=== PATIENT | male | born 1985 | race Caucasian/White ===

== ENCOUNTER 2020-04-13 16:45 | Emergency (ER) | payer BC, SELFPAY ==
[2020-04-13] VITALS (7 sets, daily range): BP systolic 103–152; BP diastolic 62–82; PULSE 62–74; RESP 16; TEMP 36.9–37; O2SAT 94–96; BMI 38.7
--- NOTE | 2020-04-13 16:48 | CT_ITS ---
PROCEDURE: CT ABDOMEN PELVIS W CON CLINICAL INDICATION: trauma Blunt trauma with injury and pain, contusion/abrasion or hematoma following injury COMPARISON: No exams were available for comparison TECHNIQUE: IV Contrast: 75ML Isovue 370 Oral Contrast None Axial images obtained with sagittal and coronal reformats. All CT scans at the facility use one or more dose reduction, viz: automated exposure control, ma/kV adjustment per patient size (including targeted exams where dose is matched to indication, i.e. head), or iterative reconstruction technique. FINDINGS: LOWER THORAX: Nondisplaced fractures of the left 6th and 7th ribs laterally. ABDOMEN & PELVIS: The liver, spleen, pancreas, adrenal glands, and kidneys show no acute finding. No intestinal obstruction or free air. No evidence of appendicitis or diverticulitis. No pelvic mass, abnormal fluid collection, or focal inflammatory change of the pelvis. No acute bony anomalies. There is grade 1 spondylitic spondylolisthesis of L5 on S1 with degenerative disc disease at that level. IMPRESSION: 1. Nondisplaced left 6th and 7th rib fracture. 2. Otherwise negative. No acute abdominal or pelvic findings. Dictated by: Odilon Lloyd MD 04/14/2020 06:46 Odilon Lloyd MD in [facility] 04/14/2020 06:46
--- NOTE | 2020-04-13 16:48 | CT_ITS ---
PROCEDURE: CT ANGIO CHEST CLINCIAL INDICATION: trauma The left-sided chest pain following injury, Blunt trauma with injury and pain, contusion/abrasion or hematoma following injury COMPARISON: No exams were available for comparison TECHNIQUE: IV Contrast: 70ML Isovue 370 Axial images obtained with sagittal and coronal reformats. All CT scans at the facility use one or more dose reduction, viz: automated exposure control, ma/kV adjustment per patient size (including targeted exams where dose is matched to indication, i.e. head), or iterative reconstruction technique. FINDINGS: HEART AND MEDIASTINAL STRUCTURES: No evidence of aortic aneurysm or dissection. No evidence of pulmonary embolus. Scattered small nodes some which are calcified are present in the mediastinum LUNGS AND PLEURAL SPACES: Unremarkable. Calcified granuloma right lower lobe. No evidence of pneumothorax. BONY STRUCTURES: There is a nondisplaced fracture of the left six and 7th rib laterally. UPPER ABDOMEN: Unremarkable. ADDITIONAL FINDINGS: Gynecomastia IMPRESSION: Nondisplaced left 6th and 7th rib fractures laterally otherwise negative Dictated by: Odilon Lloyd MD 04/14/2020 06:42 Odilon Lloyd MD in [facility] 04/14/2020 06:42
--- NOTE | 2020-04-13 16:49 | XR_ITS ---
PROCEDURE: XR ANKLE LT MIN 3V CLINICAL INDICATION: trauma Pain COMPARISON: CR XR FOOT LT MIN 3V from 04/13/2020 FINDINGS: No fracture, dislocation, lytic change, or blastic change evident. No significant degenerative change IMPRESSION: No acute findings. Dictated by: Odilon Lloyd MD 04/13/2020 17:36 Odilon Lloyd MD in [facility] 04/13/2020 17:36
--- NOTE | 2020-04-13 16:51 | HMH.EDGENADL ---
ED Disposition Clinical Impression: Ribs, multiple fractures Qualifiers: Encounter type: initial encounter Fracture type: closed Laterality: left Qualified Code(s): S22.42XA - Multiple fractures of ribs, left side, initial encounter for closed fracture Left ankle sprain Qualifiers: Encounter type: initial encounter Disposition: Home, Self-Care Condition on Discharge: Good Additional Instructions: You were seen on an emergency basis. It is very important that you follow up with your primary care provider and/or specialist as we discussed within 2 days. All labs and imaging were obtained and interpreted here to rule out life threatening emergencies, but your final results should be reviewed by your primary doctor at your follow up appointment. Please return to the emergency department if any of your symptoms worsen, or if they do not improve as we discussed. Referrals: PCP,No [Primary Care Provider] - Anthony Branch MD [Staff Physician] - - Critical Care Critical Care Time: No Attestation: On , the high probability of a clinically significant, sudden or life threatening deterioration of the following system(s) required my full and direct attention, intervention and personal management. The time I documented below is in addition to time spent performing reported procedures but includes the following listed in this critical care notation. Medical Decision Making - Medical Records Medical records reviewed: Yes: I reviewed the patient's medical records. - Donell Inquiry Pt receiving controlled substance: No Vital Signs: 04/13/20 16:46 04/13/20 16:47 04/13/20 17:00 Temperature 98.6 F Temperature Source Oral Pulse Rate [Right Brachial] 66 70 62 Respiratory Rate 16 Blood Pressure [Right Arm] 103/82 L 103/82 L 109/62 L Blood Pressure Mean [Right Arm] 89 89 77 Blood Pressure Source [Right Arm] Automatic Cuff Automatic Cuff Automatic Cuff Blood Pressure Position [Right Arm] Sitting Sitting Sitting 02 Sat by Pulse Oximetry 94 L 95 95 Oxygen Delivery Method Room Air Room Air Room Air 04/13/20 17:55 04/13/20 17:58 04/13/20 18:30 Temperature Temperature Source Pulse Rate [Right Brachial] 70 69 72 Respiratory Rate Blood Pressure [Right Arm] 126/82 129/80 152/70 H Blood Pressure Mean [Right Arm] 96 96 97 Blood Pressure Source [Right Arm] Automatic Cuff Automatic Cuff Automatic Cuff Blood Pressure Position [Right Arm] Sitting Sitting Sitting 02 Sat by Pulse Oximetry 94 L 96 96 Oxygen Delivery Method Room Air Room Air Room Air Orders (Tests/Meds): ED MEDICATIONS Discontinued Medications Generic Name Dose Route Start Last Admin Trade Name Tiera PRN Reason Stop Dose Admin Iopamidol 100 ml 04/13/20 17:50 04/13/20 17:52 Iopamidol-370 (76%);100ml Bottle IV 04/13/20 17:51 100 ml ONCE ONE Administration Morphine Sulfate 4 mg 04/13/20 18:58 Morphine 4mg/Ml Syringe IV 04/13/20 18:59 ONCE ONE Sodium Chloride 10 ml 04/13/20 17:50 04/13/20 17:51 Sodium Chloride 0.9% 10ml Syr (Rad Only) IV 04/13/20 17:51 10 ml ONCE ONE Administration Sodium Chloride 50 ml 04/13/20 17:50 04/13/20 17:51 0.9 % Sodium Chloride 50 Ml Vial IV 04/13/20 17:51 50 ml ONCE ONE Administration ORDERS Category Date Time Status CT abdomen pelvis w con Stat Cat Scan 04/13/20 16:[address] angio chest Stat Cat Scan 04/13/20 16:48 Taken Complete Blood Count Auto Diff Stat Lab 04/13/20 16:49 Ordered Comprehensive Metabolic Panel Stat Lab 04/13/20 16:49 Ordered Medical Decision Narrative: 4-year-old male presenting with left chest wall pain and ankle pain after ground-level fall. CT chest and abdomen/pelvis demonstrated 2 nondisplaced left rib fractures. He received morphine for this. No other intra-abdominal or intrathoracic pathology. X-rays of the left ankle and foot are negative for acute disease including fracture or dislocation. Patient was given incentive spi
--- NOTE | 2020-04-13 17:11 | PC.NURSE ---
Patient gone to radiology
--- NOTE | 2020-04-13 17:50 | PC.NURSE ---
Patient back from radiology
--- NOTE | 2020-04-13 18:55 | PC.NURSE ---
received report, no blood had been obtained. pt is agreeable to having the blood drawn. md at bedside and aware.
[2020-04-13 19:19] LABS: Chloride 102 mmol/L (98-107)
[2020-04-13 19:20] LABS: Potassium 4.7 mmoL/L (3.5-5.1); Sodium 137 mmol/L (136-145)
[2020-04-13 19:22] LABS: Alanine Aminotransferase 32 U/L (12-78); Aspartate Amino Transferase 35 U/L (17-59); Blood Urea Nitrogen 14 mg/dl (9-20); Creatinine Clearance Estimated 163 mL/min (50-200); Estimated Glomerular Filt Rate 87 ml/min (>60); GFR (African American) 105 ML/MIN (>60)
[2020-04-13 19:23] LABS: Albumin Level 4.6 g/dl (3.5-5.0); Albumin/Globulin Ratio 1.2 (1.1-1.8); Alkaline Phosphatase 83 U/L (38-126); Anion Gap 11.7 mEq/L (5-15); Bilirubin,Total 0.6 mg/dl (0.2-1.3); Calcium 9.1 mg/dl (8.4-10.2); Carbon Dioxide 28 mmol/L (22.0-30.0); Globulin 3.9 g/dL (1.3-3.2); Glucose 100 mg/dl (74-100); Total Protein,Serum 8.5 g/dl (6.3-8.2)
[2020-04-13 19:25] LABS: Basophils % 0.2 % (0.1-2.0); Eosinophils % 0.3 % (0.1-12.0); Hematocrit 50.7 % (42.0-52.0); Hemoglobin 17.4 g/dL (14.1-18.0); Lymphocytes # 1.5 K/mm3 (0.7-4.5); Lymphocytes % 12.1 % (10-50); Mean Corpuscular HGB Conc 34.3 g/dL (31.8-35.4); Mean Corpuscular Hemoglobin 31.8 pg (27.0-31.2); Mean Corpuscular Volume 92.8 fl (80-94); Mean Platelet Volume 6.8 fl (7.4-10.4); Monocytes # 0.6 K/mm3 (0.1-1.0); Monocytes % 5.1 % (1.7-9.3); Neutrophils # 10.2 K/mm3 (1.8-7.8); Neutrophils % 82.3 % (37.0-80.0); Platelet Count 243 K/mm3 (142-424); Red Blood Count 5.46 M/mm3 (4.60-6.20); White Blood Count 12.4 K/mm3 (4.8-10.8)
== END 2020-04-13 19:24 | disposition home or self-care (01) ==
PROVIDERS: Emergency Provider Physician Assistant
DX: S22.42XA Multiple fractures of ribs, left side, initial encounter for closed fracture (principal); W18.2XXA Fall in (into) shower or empty bathtub, initial encounter; Y92.012 Bathroom of single-family (private) house as the place of occurrence of the external cause
CPT/HCPCS: 71275; 73610; 73630; 74177; 80053; 85025; 96374; 99283; Q9967

== ENCOUNTER 2022-05-02 17:49 | Emergency (ER) | payer BC, SELFPAY ==
--- NOTE | 2022-05-02 17:47 | ECG_ITS ---
APPROVED REPORT Exam: Resting ECG HR:66 bpm ECG Measurements Heart Rate 66 AXES OK 163 P 31 QRSd 84 QRS 48 QT 374 T 25 QTc 387 Conclusion SINUS RHYTHM NORMAL ECG UNCONFIRMED REPORT Electronically signed by : Jefferson Ruiz MD 05/03/2022 13:14:48
[2022-05-02 17:49] VITALS: BP 138/89; PULSE 70; RESP 18; TEMP 36.7; O2SAT 98; BMI 27.3
--- NOTE | 2022-05-02 17:54 | CT_ITS ---
PROCEDURE INFORMATION: Exam: CTA Chest With Contrast Exam date and time: 05/02/2022 6:21 PM Age: 36 years old Clinical indication: Sternal or substernal pain; Additional info: Chest pain, to back TECHNIQUE: Imaging protocol: Computed tomographic angiography of the chest with contrast. 3D rendering (Not supervised by radiologist): MIP and/or 3D reconstructed images were created by the technologist. Radiation optimization: All CT scans at this facility use at least one of these dose optimization techniques: automated exposure control; mA and/or kV adjustment per patient size (includes targeted exams where dose is matched to clinical indication); or iterative reconstruction. Contrast material: ISOVUE 370; Contrast volume: 100 ml; Contrast route: INTRAVENOUS (IV); COMPARISON: CR CXR2V XR chest 2V 02/23/2018 1:28 PM FINDINGS: Pulmonary arteries: There is heterogeneous contrast attenuation of visualized pulmonary arteries, more pronounced in the subsegmental vessels and likely related to contrast bolus. This limits the detection of pulmonary emboli in the small and peripheral pulmonary arterial branches. As seen, no large or central pulmonary emboli. Aorta: There is no evidence of an aortic aneurysm. There is no evidence of aortic dissection, leak, rupture, or other acute vascular pathology. Thyroid: The visualized thyroid gland is normal. Lungs: No focal areas of consolidation. A 6 mm nodule is present within the right middle lobe seen on series 5, image 72. A few small nodular densities are present in right lower lobe, none measuring larger than 6 mm. There is a calcified nodule in the inferomedial right lower lobe measuring 13.2 x 11.4 mm which may reflect a granuloma or hamartoma. A noncalcified nodule in left upper lobe measures 6.1 mm seen on series 5, image 38. A few additional left lung nodules are present, none measuring larger than 6 mm. There are multiple punctate pulmonary parenchymal calcifications, consistent with remote granulomatous organism exposure. Pleural spaces: There are no pleural effusions. No pneumothorax. Heart: The heart is not enlarged. Mediastinal space: A normal amount of residual thymus tissue is present in the anterior/superior mediastinum. Lymph nodes: Calcified mediastinal lymph nodes indicate prior granulomatous disease. Intraperitoneal space: The remainder of the upper visualized abdominal structures are normal. Bones/joints: The thoracic spine demonstrates mild degenerative changes at multiple levels. Soft tissues: There is nonspecific gynecomastia. No significant soft tissue edema. Other findings: Motion artifact does moderately limit the sensitivity of this examination. IMPRESSION: 1. Heterogeneous contrast attenuation of visualized pulmonary arteries limits the detection of pulmonary emboli in the small and peripheral pulmonary arterial branches. As seen, no large or central pulmonary emboli. 2. Several pulmonary nodules bilaterally, the largest measuring approximately 6.1 mm. If the patient does not have known cancer, follow up should be based on clinical information because of the low risk of cancer in this age group. (Reference: Shaheen) 3. 13.2 x 11.4 mm calcified nodule in the inferomedial right lower lobe likely reflects either granuloma or hamartoma. Correlate clinically. REFERENCES: Shaheen H, et al. Guidelines for Management of Incidental Pulmonary Nodules Detected on CT Images: From the Fleischner Society 2017. Radiology. 2017;284(1):228-243.
--- NOTE | 2022-05-02 18:03 | HMH.EDGENADL ---
Discharge Plan Disposition Patient Disposition: Home, Self-Care Prescriptions Prescriptions: No Action hydrocodone-acetaminophen [Bryan] 5-325 mg tablet 1 tab PO Q6H PRN (Reason: pain) Qty: 12 0RF Referrals Follow up/Referrals: Provider,Referral, [Primary Care Provider] - See instructions Activity Restrictions/Add. Instructions Additional Instructions/Restrictions: You have been evaluated for chest pain. Work-up today shows a few enlarged nodules in your lungs. There is no evidence of heart attack. Please follow-up with your primary care doctor for symptom recheck in 1 to 2 days. Take Tylenol and ibuprofen for pain. Return to the emergency department at once for any new or worsening symptoms, chest pain, difficulty breathing, other concerns. Clinical Impressions Clinical Impression: Chest pain, Pulmonary nodule Instructions Patient Instructions: DI for Chest Pain, DI for Pulmonary Nodule Discharge ED Provider: Mechelle Ashraf Adult HPI General Chief complaint: Chest Pain Stated complaint: CP Time Seen by Provider: 05/02/22 17:54 History of Present Illness HPI narrative: 36-year-old male presenting to the emergency department chest pain. Pain started this evening, couple of hours ago. He was getting ready for work when he suddenly developed sharp, intense chest pain. Located in the front. Radiated toward his jaw. It was described as squeezing, pressure sensation. Folic his blood pressure was elevated. He has hyperlipidemia, but no formal diagnosis of hypertension. He took a multivitamin and preworkout this morning. No other medications prior to arrival. No aspirin. No history of coronary artery disease Related Data Previous Rx's Medication Instructions Recorded hydrocodone 5 mg-acetaminophen 325 1 tab PO Q6H PRN pain #12 tabs 11/12/20 mg tablet (Bryan) Allergies Allergy/AdvReac Type Severity Reaction Status Date / Time No Known Drug Allergies Allergy Unknown Verified 04/22/20 09:04 [NKDA] [facility] Social History (System 04/14/20 @ 08:39 by Arti Singh) Smoking Status: Never smoker alcohol intake: never current occupational status: employed Travel in the last 8 weeks: Inside the [place] ROS Obtained: Yes All systems reviewed & no additional complaints except as documented Constitutional Constitutional: Denies chills, Denies fever(s) and Denies headache(s) Eyes Eyes: Denies blurry vision ENT Ears, Nose, Mouth, and Throat: Denies dizziness, Denies headache(s) and Denies neck pain Cardiovascular Cardiovascular: Reports chest pain, Reports chest pain at rest, Denies dyspnea, Denies palpitations and Reports radiating jaw, neck or arm pain Respiratory Respiratory: Denies cough, Denies dyspnea and Denies wheezing Gastrointestinal Gastrointestingal: Denies nausea or vomiting Musculoskeletal Musculoskeletal: Reports back pain and Denies neck pain Integumentary/Breasts Skin/Breast: Denies rash Neurologic Neurologic: Denies dizziness and Denies headache(s) Endocrine Endocrine: Denies palpitations Allergic/Immunologic Allergic/Immunologic: Denies wheezing Physical Exam General General appearance: alert and in no apparent distress Head Head exam: atraumatic and normocephalic ENT ENT exam: Present normal exam, normal oropharynx and mucous membranes moist Neck Neck exam: Present normal inspection and trachea midline; Absent full ROM Respiratory Respiratory exam: Present normal lung sounds bilaterally; Absent respiratory distress or wheezes Cardiovascular Cardiovascular exam: Present regular rate and normal rhythm Abdominal Exam Abdominal exam: Present soft; Absent distention or tenderness Extremities Exam Extremities exam: Present normal inspection and full ROM; Absent tenderness Neurological Exam Neurological exam: Present alert and oriented X3 Psychiatric Psychiatric exam: Present normal affect and normal mood Skin Skin exam: Present warm and dr
[2022-05-02 18:06] LABS: Basophils # 0.1 K/mm3 (0-0.2); Basophils % 1.3 % (0.1-2.0); Eosinophils # 0.1 K/mm3 (0.0-0.4); Hematocrit 47.4 % (42.0-52.0); Hemoglobin 16.4 g/dL (14.1-18.0); Lymphocytes % 29.2 % (10-50); Mean Corpuscular HGB Conc 34.5 g/dL (31.8-35.4); Mean Corpuscular Hemoglobin 33.5 pg (27.0-31.2); Monocytes # 0.5 K/mm3 (0.1-1.0); Neutrophils % 59.5 % (37.0-80.0); Platelet Count 251 K/mm3 (142-424); Red Blood Count 4.89 M/mm3 (4.60-6.20); Red Cell Distribution Width 13.5 % (11.5-17.5); White Blood Count 6.8 K/mm3 (4.8-10.8)
[2022-05-02 18:08] VITALS: PULSE 70
[2022-05-02 18:11] LABS: Chloride 100 mmol/L (98-107); Potassium 4.1 mmoL/L (3.5-5.1); Sodium 139 mmol/L (136-145)
[2022-05-02 18:14] LABS: Alanine Aminotransferase 33 U/L (12-78); Albumin Level 4.6 g/dl (3.5-5.0); Albumin/Globulin Ratio 1.1 (1.1-1.8); Alkaline Phosphatase 74 U/L (38-126); Anion Gap 11.1 mEq/L (5-15); Aspartate Amino Transferase 39 U/L (17-59); Bilirubin,Total 0.5 mg/dl (0.2-1.3); Blood Urea Nitrogen 16 mg/dl (9-20); Carbon Dioxide 32 mmol/L (22.0-30.0); Creatinine Clearance Estimated 100 mL/min (50-200); Estimated Glomerular Filt Rate 69 ml/min (>60); GFR (African American) 84 ML/MIN (>60); Globulin 4.1 g/dL (1.3-3.2); Total Protein,Serum 8.7 g/dl (6.3-8.2)
[2022-05-02 18:15] LABS: Glucose 84 mg/dl (74-100)
--- NOTE | 2022-05-02 18:16 | PC.NURSE ---
pt to CT via wheelchair
--- NOTE | 2022-05-02 18:16 | PC.NURSE ---
PT GOING FOR CT
[2022-05-02 18:27] LABS: Troponin I < 0.01 ng/ml (0.00-0.034)
--- NOTE | 2022-05-02 18:28 | PC.NURSE ---
PT BACK FROM CT
[2022-05-02 19:01] VITALS: BP 118/79; PULSE 67; RESP 10; O2SAT 97
[2022-05-02 19:11] LABS: Coronavirus 19, PCR Not Detected (NotDetected); Influenza A, PCR Not Detected (NotDetected); Influenza B, PCR Not Detected (NotDetected)
--- NOTE | 2022-05-02 20:38 | PC.NURSE ---
Second trop sent to lab. No other needs voiced. Pt advised he felt much better at this time.
[2022-05-02 21:20] LABS: Troponin I < 0.01 ng/ml (0.00-0.034)
[2022-05-02 21:31] VITALS: BP 120/68; PULSE 78; RESP 16; TEMP 36.8; O2SAT 98
== END 2022-05-02 21:50 | disposition home or self-care (01) ==
PROVIDERS: Emergency Provider Emergency Medicine
DX: R07.9 Chest pain, unspecified (principal); R68.84 Jaw pain; R03.0 Elevated blood-pressure reading, without diagnosis of hypertension; E78.5 Hyperlipidemia, unspecified; Z20.822 Contact with and (suspected) exposure to COVID-19
CPT/HCPCS: 71275; 80053; 84484; 85025; 93005; 99285; C9803; Q9967; U0003; U0005

== ENCOUNTER 2022-11-02 12:30 | Emergency (ER) | payer BC, SELFPAY ==
[2022-11-02 12:30] VITALS: BP 136/80; PULSE 62; RESP 18; TEMP 36.4; O2SAT 96; BMI 36.3
[2022-11-02 12:37] VITALS: BP 136/80; PULSE 64; RESP 20; O2SAT 96
[2022-11-02 13:06] LABS: Microscopic, Urine URINE MICROSCOPIC (MICROSCOPIC)
[2022-11-02 13:07] LABS: Appearance,Urine CLEAR (Clear); Bilirubin,Urine Negative (Negative); Blood, Urine 3+ (Negative); Color,Urine YELLOW (Yellow); Glucose,Urine (UA) Negative (Negative); Ketones,Urine TRACE (Negative); Leukocyte Esterase,Urine Negative (Negative); Nitrate,Urine Negative (Negative); Protein,Urine Negative (Negative); Specific Gravity, Urine 1.025 (1.005-1.030)
[2022-11-02 13:28] LABS: Bacteria,Urine Trace /lpf; Squamous Epithelial Cell,Urine Occasional #/hpf (0-5)
--- NOTE | 2022-11-02 13:37 | HMH.EDGENADL ---
Discharge Plan Disposition Patient Disposition: Home, Self-Care Condition: Good Chief Complaint: PAIN Prescriptions Prescriptions: No Action hydrocodone-acetaminophen [Ingram] 5-325 mg tablet 1 tab PO Q6H PRN (Reason: pain) Qty: 12 0RF Referrals Follow up/Referrals: Carla Nguyen [Primary Care Provider] - See instructions Clinical Impressions Clinical Impression: Kidney stone, Hematuria Discharge ED Provider: Venkat Davey General Adult HPI General Chief complaint: PAIN Stated complaint: RT abd pain Time Seen by Provider: 11/02/22 12:35 Mode of Arrival: Ambulatory Source of Information: Patient Limitations: No Limitations Description of Symptoms (Recalled from ER Triage Doc. by RN): Presents to ED with complaints of right flank pain that radiates to his groin. Patient reports urinary urgency as well as dysuria. +Nausea. Denies hx of renal stones. History of Present Illness HPI narrative: 37yo M presents the ER secondary to right flank pain, right back pain. Pain radiates to his groin. Reports urinary frequency and difficulty passing urine. Endorses nausea. No previous episodes similar. No fever. Family history of kidney stones and renal disease Related Data Previous Rx's Medication Instructions Recorded hydrocodone 5 mg-acetaminophen 325 1 tab PO Q6H PRN pain #12 tabs 11/12/20 mg tablet (Ingram) Allergies Allergy/AdvReac Type Severity Reaction Status Date / Time No Known Drug Allergies Allergy Unknown Verified 04/22/20 09:04 [NKDA] [facility] Disclaimer: The information contained in this section may have been updated after the patient was seen, as this information can be updated by other users. Social History Smoking Status: Never smoker alcohol intake: never current occupational status: employed Travel in the last 8 weeks: Inside the [employer] ROS Obtained: Yes Systems reviewed as appropriate & no additional complaints except as documented Physical Exam General General appearance: alert and in no apparent distress Head Head exam: atraumatic Eye Eye exam: Present normal appearance ENT ENT exam: Present normal exam Neck Neck exam: Present normal inspection and trachea midline Chest Chest inspection: Present normal inspection Respiratory Respiratory exam: Present normal lung sounds bilaterally Cardiovascular Cardiovascular exam: Present regular rate and normal rhythm Abdominal Exam Abdominal exam: Present soft; Absent distention Extremities Exam Extremities exam: Present normal inspection Back Exam Back exam: Present normal inspection; Absent tenderness Neurological Exam Neurological exam: Present alert, oriented X3 and CN II-XII intact Psychiatric Psychiatric exam: Present normal affect Skin Skin exam: Present warm Medical Decision Making Medical Records Medical records reviewed: Yes I reviewed the patient's medical records. Donell Inquiry Pt receiving controlled substance: No Vital Signs: 11/02/22 12:30 11/02/22 12:37 Temperature 97.6 F Temperature Source Oral Pulse Rate 64 Pulse Rate [Right] 62 Respiratory Rate 18 20 Blood Pressure 136/80 Blood Pressure [Right Arm] 136/80 Blood Pressure Mean 103 Blood Pressure Mean [Right Arm] 98 Blood Pressure Source [Right Arm] Automatic Cuff Blood Pressure Position [Right Arm] Sitting 02 Sat by Pulse Oximetry 96 96 Oxygen Delivery Method Room Air Lab Data Lab results reviewed: Yes I reviewed the patient's lab results. Lab Results 11/02/22 12:38: Urine Color Yellow, Urine Appearance Clear, Urine pH 6.0, Ur Specific [place] 1.025, Urine Protein Negative, Urine Glucose (UA) Negative, Urine Ketones Trace, Urine Blood 3+, Urine Nitrate Negative, Urine Bilirubin Negative, Urine Urobilinogen 1.0, Ur Leukocyte Esterase Negative, Urine RBC 5-10, Urine WBC None, Ur Squamous Epith Cells Occasional, Urine Bacteria Trace Orders (Tests/Meds
--- NOTE | 2022-11-02 13:42 | PC.NURSE ---
nothing needed at this time, pt is being discharged mom at bs
[2022-11-02 13:44] VITALS: BP 116/73; PULSE 69; RESP 18; O2SAT 96
[2022-11-02 13:58] VITALS: BP 116/73; PULSE 71; RESP 16; TEMP 36.4; O2SAT 96
== END 2022-11-02 13:45 | disposition home or self-care (01) ==
PROVIDERS: Emergency Provider Family Medicine; PCP Family Medicine
DX: N20.0 Calculus of kidney (principal); R31.9 Hematuria, unspecified
CPT/HCPCS: 81001; 99283

== ENCOUNTER → 2024-09-05 06:31 | Outpatient (CLI) | payer BC, SELFPAY | LOC: SL 06:32 | PROVIDERS: PCP Family Medicine; Visit Provider Family Medicine | DX: G47.33 Obstructive sleep apnea (adult) (pediatric) (principal) | CPT/HCPCS: G0399 ==

== ENCOUNTER 2025-01-19 10:38 | Outpatient (CLI) | payer BC, SELFPAY ==
--- OUTSIDE RECORDS SUMMARY | 2024-11-06 05:45 | XMS_ITS ---
Author Organization [facility] Address [address] [facility] [address] [place] [id number] Care Team Providers Care Manager Fitness Name Role Phone Serge Orourke Primary Care Provider REASON FOR VISIT 3 month f/u Encounters Encounter Location Date Provider Diagnosis [facility] [address] [facility] [address] [place] [phone] 11/06/2024 Serge Orourke Plan Of Treatment No Information Progress Notes * Jai FERGUSONDOB:1985 ( 39 yo M)Acc No.[id number]:11/06/2024 Progress Notes Patient: Jai FUNES Provider: Deborah Orourke M.D. :1985 A ge:39 Y S ex:Male Date:11/06/2024 Address:[address] [place], [place] [id number] Subjective: * Chief Complaints: * 1 . 3 month f/u. * Medical History: Objective: * Vitals: Assessment: Plan: * Treatment: * Images: Billing Information: * Visit Code: * Procedure Codes: * Electronic signature of Yasmeen Orourke MD on 01/19/2025 at 10:40 AM EDT Sign off status: Pending * Provider: Deborah Orourke M.D. Date: 11/06/2024 Generated for Elza coulter/Marcell/Salena on: 01/19/2025 10:40 AM EDT
--- OUTSIDE RECORDS SUMMARY | 2024-12-15 12:45 | XMS_ITS ---
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 :1985 A ge:39 Y S ex:Male Date:12/15/2024 Address:[address] [place] [address] Subjective: * Chief Complaints: * 1 . 6 weeks fasting. * ROS: D ERMATOLOGY: no R kasey. n o H jaime. G ASTROENTEROLOGY: no N ausea. n o V omiting. U ROLOGY: no D ifficulty urinating. n o B lood in urine. * Medical History: S leep apnea, Vitamin D deficiency. * Surgical History: D enies Past Surgical History. * Hospitalization/Major Diagno stic Procedure: D enies Past Hospitalization. * Family History: F ather: alive 64 yrs, diagnosed with Stroke. M other: alive 59 yrs. M aternal Grand Father: diagnosed with Heart Disease. 1 son(s) , 1 daughter(s) . . * Social History: C URRENT TOBACCO USE: No . C affeine: yes. Alcohol: yes. * Allergies: N .K.D.A. Objective: * Vitals: Assessment: Plan: * Treatment: * Images: Billing Information: * Visit Code: * Procedure Codes: * Electronic signature of Yasmeen Orourke MD on 01/19/2025 at 10:40 AM EDT Sign off status: Pending * Provider: Deborah Orourke M.D. Date: 0 12/15/2024 Generated for Ezla coulter/Marcell/Salena on: 0 01/19/2025 10:40 AM EDT
--- NOTE | 2025-01-19 10:40 | XR_ITS ---
FINAL REPORT CLINICAL HISTORY: right elbow pain FINDINGS: 3 views of the right elbow were obtained. There is no acute fracture or dislocation. The joint spaces are intact. There is not soft tissue abnormality. IMPRESSION: No acute fracture Reviewed, Interpreted and Dictated by Gwyn Vega MD Transcribed by Gilda Wesley Authenticated and [facility]
--- NOTE | 2025-01-19 10:40 | XR_ITS ---
FINAL REPORT CLINICAL HISTORY: right shoulder pain FINDINGS: RIGHT SHOULDER 2 views demonstrate no acute fracture or dislocation. Mild hypertrophic changes are seen of the acromioclavicular joint. The visualized joint spaces are normally aligned. The soft tissues are unremarkable. IMPRESSION: No acute process. Reviewed, Interpreted and Dictated by Gwyn Vega MD Transcribed by Gilda Wesley Authenticated and [facility]
--- NOTE | 2025-01-19 10:40 | XR_ITS ---
FINAL REPORT CLINICAL HISTORY: left shoulder pain FINDINGS: LEFT SHOULDER 2 views of the left shoulder were obtained. There is no acute fracture or dislocation. Visualized joint spaces are normally aligned. Soft tissues are unremarkable. IMPRESSION: No acute bony abnormality. Reviewed, Interpreted and Dictated by Gwyn Vega MD Transcribed by Gilda Wesley Authenticated and [facility]
--- NOTE | 2025-01-19 10:40 | XR_ITS ---
FINAL REPORT CLINICAL HISTORY: left elbow pain FINDINGS: 3 views of the left elbow were obtained. There is no acute fracture or dislocation. The joint spaces are intact. There is not soft tissue abnormality. IMPRESSION: No acute fracture Reviewed, Interpreted and Dictated by Gwyn Vega MD Transcribed by Gilda Wesley Authenticated and [facility]
--- OUTSIDE RECORDS SUMMARY | 2025-01-19 10:40 | XMS_ITS | Patient Health Record ---
Author Organization [facility] Address [address] [facility] [address] [place] [id number] Care Team Providers Care Dairy Specialist Name Role Phone Serge Orourke Primary Care Provider [phone] Allergies No Known Allergies Results Component Value Reference Range Notes P-Vitamin B12 Reviewed date:08/08/2024 10:48:28 AM Interpretation:Normal Performing Lab: Notes/Report: Test performed by [facility] [address] [place], [place] [address] [place] , [address], [place] [address] Tito Solis MD, Psychic Reader CLIA: [id number] Vitamin B12 304 407-3279 pg/mL P-CPK Reviewed date:08/08/2024 10:48:28 AM Interpretation:Normal Performing Lab: Notes/Report: Test performed by [facility] [address] [place] [address] , [address], [place] [address] Tito Solis MD, Psychic Reader CLIA: [id number] Creatine Kinase 173 20-200 U/L U-X-Lnhaepua Protein (CRP) Reviewed date:08/08/2024 10:48:28 AM Interpretation:Normal Performing Lab: Notes/Report: Test performed by [facility] [address] [place], [place] [address] [place] , [address], [place] [address] Tito Solis MD, Psychic Reader CLIA: [id number] C-Reactive Protein (CRP) 0.24 <0.50 mg/dL P-Sed Rate (ESR) Reviewed date:08/08/2024 10:48:28 AM Interpretation:Normal Performing Lab: Notes/Report: Test performed by [facility] [address] [place], [place] [address] [place] , [address], [place] [address] Tito Solis MD, Psychic Reader CLIA: [id number] Erythrocyte Sedimentation Rate (ESR), Automated 2 <16 mm/hr P-Lipid Panel Reviewed date:08/08/2024 10:48:28 AM Interpretation:chol 280, trigs 809, hdl 25, chol/hdl 11.2, non-hdl 255 Performing Lab: Notes/Report: Test performed by [facility] [address] , [address], [place] [address] Tito Solis MD, Psychic Reader CLIA: [id number] Cholesterol 280 <200 mg/dL Triglycerides 809 <150 mg/dL HDL Cholesterol 25 >39 mg/dL Cholesterol / HDL Ratio 11.20 0.00-4.99 Ratio Non-HDL Cholesterol 255 <130 mg/dL LDL Cholesterol (Calculation) SEE COMMENT <130 mg/dL LDL Cholesterol Levels* Less than 100 mg/dL Optimal 100 to 129 mg/dL Near Optimal/ Above Optimal 130 to 159 mg/dL Borderline High 160 to 189 mg/dL High 190 mg/dL and above Very High * Categories as recommended by the 2004 ATPIII guidelines Unable to calculate due to Triglycerides >400 mg/dL LDL/HDL Ratio SEE COMMENT <3.3 Ratio Unable to calculate due to Triglycerides >400 mg/dL LDL Cholesterol Patient History Test Date: 10/06/2021 LDL Results: SEE COMMENT Units: mg/dL % Change: - Test Date: 01/27/2022 LDL Results: SEE COMMENT Units: mg/dL % Change: - Test Date: 08/06/2024 LDL Results: SEE COMMENT Units: mg/dL % Change: - P-Magnesium Reviewed date:08/08/2024 10:48:28 AM Interpretation:Normal Performing Lab: Notes/Report: Test performed by [facility] [address] [place] [address] , [facility], [place] [address] Tito Solis MD, Psychic Reader CLIA: [id number] Magnesium 2.2 1.6-2.4 mg/dL P-Phosphorus Reviewed date:08/08/2024 10:48:28 AM Interpretation:Normal Performing Lab: Notes/Report: Test performed by [facility] [address] [place] [address] [place] [address], [place] [address] Tito Solis MD, Psychic Reader CLIA: [id number] Phosphorus 3.2 2.5-4.5 mg/dL sleep study Reviewed date:09/11/2024 11:54:12 AM Interpretation:Mild DAVID, Moderate O2 Desaturation Performing Lab: Notes/Report: Mild DAVID, Moderate O2 Desaturation Reason For Referral Diagnosis 1 Obstructive sleep ap mariann (G47.33) Referral Organization [facility] Referring Provider First Name Serge Referring Provider Last Name Sharad Referring Provider Speciality Family Pra ctice Referred Provider Shell Adams Referred Provider Specialty Neurology General Notes Josephine Bentley 2024 02:00:26 PM > faxed to Dr. Adams office, Josephine Bentley 11/27/2024 10:05:52 AM > spoke with Yusra in neurology; referral l has been received Referral Priority Routine Medications Medication SIG (Take, Route, Frequency, Duration) Notes Start Date End Date Status Ondansetron HCl 4 MG 1 tablet Orally Once a day; Duration: 20 days As needed 11/16/2024 Active Vitamin D3 1.25 MG (86148 UT) 1 capsule Orally Once a week 08/06/2024 Active DULoxetine HCl 30 MG 1 capsule Orally On ce a day; Duration: 90 days 10/29/2024 Active CPAP machine and supplies - as directed AutoPAP 11/17 as directed 09/24/2024 Active Problems Problem Type SNOMED Code ICD Code Onset Dates Problem Status W/U Status Risk Notes Problem Vitamin D deficiency (39428679) Vitamin D deficiency (E55.9) Active confirmed Problem Hypertriglyceridemia (703199886) Hypertriglyceridemia (E78.1) Active confirmed Problem Obstructive sleep apnea (05208864) Obstructive sleep apnea (G47.33) Active confirmed Problem Mixed hyperlipidemia (675940395) Mixed hyperlipidemia (E78.2) Active confirmed Problem Chronic pain (17154939) Other chronic pain (G89.29) Active confirmed Problem Obesity (249189994) Non morbid o besity (E66.9) Active confirmed Vital Signs Heart Rate 96 /min 10/29/2024 Blood pressure diastolic 70 mm Hg 10/29/2024 Height 66 in 10/29/2024 Blood pressure systolic 120 mm Hg 10/29/2024 Weight 242.8 lbs 10/29/2024 BMI 39.18 kg/m2 10/29/2024 Encounters Encounter Location Date Provider Diagnosis [facility] [address] [facility] [address] [place] [id number] 08/06/2024 Serge Topock Fatigue, unspecified type R53.83 ; Snores R06.83 ; Witnessed apneic spells R06.81 ; Myalgia M79.10 ; Vitamin D deficiency E55.9 ; Non morbid obesity E66.9 ; Mixed hyperlipidemia E78.2 ; Hypertriglyceridemia E78.1 and Testosterone deficiency E34.9 [facility] [address] [facility] [address] [place] [id number] 10/29/2024 Serge Topock Obstructive sleep ap mariann G47.33 ; Vitamin D deficiency E55.9 ; Depressive disorder F32.A ; Mixed hyperlipidemia E78.2 ; Hypertriglyceridemia E78.1 ; Non morbid obesity E66.9 ; Other chronic pain G89.29 ; Low back pain, unspecified M54.50 and Right lateral epicondylitis M77.11 [facility] [address] [place], [place] [id number] 08/08/2024 Serge Topock [facility] [address] [place], [place] [id number] 09/11/2024 Serge Topock [facility] [address] [place], [place] [id number] 11/12/2024 Serge Topock [facility] [address] [place], [place] [id number] 11/18/2024 Serge Topock Obstructive sleep ap mariann G47.33 Assessments Encounter Date Diagnosis (ICD Code) Assessment Notes Treatment Notes Treatment Clinical Notes Section Notes 08/06/2024 Fatigue, unspecified type (ICD-10 - R53.83) 08/06/2024 Snores (ICD-10 - R06.83) 10/29/2024 Obstructive sleep ap mariann (ICD-10 - G47.33) Compliance report reviewed. He may try a different mask 10/29/2024 Vitamin D deficiency (ICD-10 - E55.9) 11/18/2024 Obstructive sleep ap mariann (ICD-10 - G47.33) 10/29/2024 Depressive disorder (ICD-10 - F32.A) 08/06/2024 Witnessed apneic spe lls (ICD-10 - R06.81) 08/06/2024 Myalgia (ICD-10 - M79.10) 10/29/2024 Mixed hyperlipidemia (ICD-10 - E78.2) 10/29/2024 Hypertriglyceridemia (ICD-10 - E78.1) 08/06/2024 Vitamin D deficiency (ICD-10 - E55.9) 08/06/2024 Non morbid obesity (ICD-10 - E66.9) 10/29/2024 Non morbid obesity (ICD-10 - E66.9) 10/29/2024 Other chronic pain (ICD-10 - G89.29) 08/06/2024 Mixed hyperlipidemia (ICD-10 - E78.2) 08/06/2024 Hypertriglyceridemia (ICD-10 - E78.1) 10/29/2024 Low back pain, unspecified (ICD-10 - M54.50) Home exercise program provided to patient 10/29/2024 Right lateral epicondylitis (ICD-10 - M77.11) Home exercise program provided to patient 08/06/2024 Testosterone deficie ncy (ICD-10 - E34.9) 08/06/2024 Other Lab results reviewed: Vit D & Testosterone both low. Cholesterol and trigs are elevated. Plan Of Treatment No Information Insurance Providers Payer Name Payer Address Payer Phone Subscriber Number Group Number Insured Name Patient Relationship to Insured Coverage Start Date Coverage End Date [facility]ONDA LORENZO [facility] [address] [place] [address] [id number] Jai Ferguson Self - patient is the insured Medical (General) History Medical History History ICD Code sleep apnea Vitamin D deficiency Surgical History Surgery Date(Month/Year)
== END 2025-01-19 23:59 | disposition home or self-care (01) ==
LOC: RAD 10:38
PROVIDERS: PCP Family Medicine; Visit Provider Physician Assistant
DX: M25.522 Pain in left elbow (principal); M25.511 Pain in right shoulder; M25.512 Pain in left shoulder; M25.521 Pain in right elbow
CPT/HCPCS: 73030; 73080